=== PATIENT | male | born 1970 | race Hispanic/Latino ===

== ENCOUNTER 2017-01-26 08:02 | Outpatient (CLI) | payer OTHER ==
--- NOTE | 2017-01-26 10:50 | Ultrasound Report ---
RIGHT UPPER QUADRANT ABDOMINAL ULTRASOUND: 01/26/17 08:02:00 CLINICAL: Right upper quadrant abdominal pain. FINDINGS: High-resolution ultrasound demonstrated an enlarged liver with marked increased echogenicity and increased attenuation of the sound. No liver mass. Poorly imaged hepatic vasculature. The inferior vena cava is normal. Normal gallbladder and bile ducts. The gall bladder wall measures 2.0 mm in thickness. The common bile duct measures 4.0 mm diameter. The pancreas was not well imaged because of bowel gas and body habitus. Only a portion of the abdominal aorta is imaged and it measures 2.6 cm. The right kidney is normal and measures 11.4 x 4.5 x 5.1cm. No ascites or mass. IMPRESSION: 1. Hepatic steatosis and hepatomegaly. 2. No cholelithiasis. 3. No biliary obstruction. 4. Poor imaging of the pancreas. 5. Normal right kidney.
== END 2017-01-26 08:03 | disposition home or self-care (01) ==
LOC: SPVWC 08:02
PROVIDERS: ATTEND Internal Medicine
DX: K76.0 Fatty (change of) liver, not elsewhere classified (principal); R16.0 Hepatomegaly, not elsewhere classified
CPT/HCPCS: 76705

== ENCOUNTER 2017-01-30 11:00 | Outpatient (CLI) | payer OTHER | END 2017-01-30 11:01 | disposition home or self-care (01) | LOC: SLR 11:00 | PROVIDERS: ATTEND Internal Medicine | DX: G47.33 Obstructive sleep apnea (adult) (pediatric) (principal) | CPT/HCPCS: 95810 ==

== ENCOUNTER 2017-02-01 10:18 | Outpatient (CLI) | payer OTHER | END 2017-02-01 10:19 | disposition home or self-care (01) | LOC: SLR 10:18 | PROVIDERS: ATTEND Internal Medicine | DX: G47.33 Obstructive sleep apnea (adult) (pediatric) (principal) | CPT/HCPCS: 95811 ==